=== PATIENT | female | born 1940 | race Caucasian/White ===

== ENCOUNTER 2017-03-18 10:28 | Day surgery (SDC) | payer OTHER ==
[2017-03-18] MEDS ORDERED: LR 1,000 ML IV ONE (11:34)
--- NOTE | 2017-03-18 12:13 | PDGENHP ---
History & Physical Chief Complaint: hx polyps History of Present Illness: 76 year old female with a history of polyps, family hx of CRC (siblings) presents for surveillance colonoscopy. Pertinent Past, Social, Family History: FaMhx: CRC. PMHx: Pacemaker, HTN, thyroid Relevant Physical Exam: HEENT: Anicteric. CV: RRR +s1s2. Lungs: CTAB. Abd: soft, nt, + bs. NO guarding or rebound Cardiorespiratory Assessment: ASA3. MAL 2
[2017-03-18] MEDS ORDERED: PROPOFOL/EMULSION 500 MG/50 ML BOTTLE IV ONE (12:33)
[2017-03-18] MEDS ORDERED: PROPOFOL 200 MG/20 ML VIAL ONE (13:06)
--- NOTE | 2017-03-18 13:28 | POSTOPPROG ---
Post Op Note Date of Operation: 03/18/17 Surgeon: Sky Mitchell Anesthesia: IV Sedation Pre-op Diagnosis: hx polyps Post-op Diagnosis: polyps Indication: hx polyps Procedure: colonoscopy snare, bx Findings: + polyps Inf/Abcess present in the surg proc area at time of surgery?: No
[2017-03-18] MEDS ORDERED: NS 500 ML IV SCH (13:30)
[2017-03-18 13:31] VITALS: PULSE 70
[2017-03-18] MEDS ORDERED: NALOXONE HCL 0.4 MG/ML INJ IVP PRN (13:33)
[2017-03-18] MEDS ORDERED: ENALAPRILAT DIHYDRATE 1.25 MG/ML VIAL IVP PRN (13:33)
[2017-03-18] MEDS ORDERED: fentaNYL 100 MCG/2 ML INJ IVP PRN (13:33)
--- NOTE | 2017-03-18 13:33 | PDANEPAE ---
ANE Past Medical History - Cardiovascular History Hx Hypertension: Yes Hx Arrhythmias: Yes Hx Chest Pain: No Hx Coronary Artery / Peripheral Vascular Disease: Yes Hx CHF / Valvular Disease: No Hx Palpitations: No Cardiovascular History Comment: HYPERLIPIDEMIA. HTN. CAD. PAF. SSS- PACEMAKER. VTACH - Pulmonary History Hx COPD: No Hx Asthma/Reactive Airway Disease: No Hx Recent Upper Respiratory Infection: No Hx Oxygen in Use at Home: No Hx Sleep Apnea: No Sleep Apnea Screening Result - Last Documented: Negative - Neurologic History Hx Cerebrovascular Accident: No Hx Seizures: No Hx Dementia: No - Endocrine History Hx Diabetes: No - Renal History Hx Renal Disorders: No - Liver History Hx Hepatic Disorders: No - Neurological & Psychiatric Hx Hx Neurological and Psychiatric Disorders: No - Cancer History Hx Cancer: Yes Cancer History Comment: THYROID. OVARIAN. (CURRENTLY CANCER FREE) - Congenital Disorder History Hx Congenital Disorders: No - GI History Hx Gastrointestinal Disorders: No - Chronic Pain History Chronic Pain: No - Surgical History Prior Surgeries: COLONOSCOPY 2013 "I GO ABOUT 2-3 YEARS". PACEMAKER 2013. LIPOMA REMOVED 2012. RADIOACTIVE GOLD IMPLANTED 1976. HYSTERECTOMY 1975. THYROIDECTOMY 1973. LAMINECTOMY 1965. APPENDECTOMY - 1952 ANE Review of Systems - Exercise capacity METS (RN): 4 METS - Pacemaker Pacemaker Type: Permanent Pacer/Defib Pacemaker Sanitation Worker Cleaning Equipment: Medtronic Pacemaker Model: FIONA STRAUSS Pacemaker Mode: MVP Pacemaker Set Rate: 70 Date Pacemaker Last Checked: 02/01/17 ANE Patient History - Allergies Allergies/Adverse Reactions: No Known Allergies Allergy (Verified 02/04/17 15:29) - Home Medications Home Medications: Diltiazem 02/04/17 [Last Taken 03/16/17] Eliquis 02/04/17 [Last Taken 03/15/17] Enalapril Maleate 02/04/17 [Last Taken 03/16/17] Herbals/Supplements -Info Only 02/04/17 [Last Taken 03/16/17] Lipitor 02/04/17 [Last Taken 03/16/17] Paroxetine HCl 02/04/17 [Last Taken 03/17/17 09:00] Synthroid 02/04/17 [Last Taken 03/17/17 09:00] Vitamin C 02/04/17 [Last Taken 03/16/17] - NPO status NPO Since - Liquids (Date): 03/18/17 NPO Since - Liquids (Time): 01:00 NPO Since - Solids (Date): 03/17/17 NPO Since - Solids (Time): 12:00 - Smoking Hx Smoking Status: Never smoked - Family Anes Hx Family Hx Anesthesia Complications: N/A ANE Labs/Vital Signs - Vital Signs Blood Pressure: 160/78 Heart Rate: 70 Respiratory Rate: 17 O2 Sat (%): 95 Height: 170.18 cm Weight: 86.183 kg ANE Physical Exam - Airway Neck exam: FROM Mallampati Score: Class 1 Mouth exam: normal dental/mouth exam - Pulmonary Pulmonary: no respiratory distress - Cardiovascular Cardiovascular: regular rate and rhythym - ASA Status ASA Status: II ANE Anesthesia Plan Anesthesia Plan: GA with mask
--- NOTE | 2017-03-18 13:33 | POSTANESTH ---
Post Anesthetic Evaluation Cardiovascular Status: Similar to Pre-Op Cond Respiratory Status: Normal, Stable Level of Consciousness/Mental Status: Can Participate in Eval Pain Control: Adequate, Prn Tx Ordered Nausea/Vomiting Control: Adequate, Prn Tx Ordered Complications Possibly Related to Anesthesia: None Noted
--- NOTE | 2017-03-18 14:00 | GPN ---
[f rep st] PROCEDURE NOTE DATE OF PROCEDURE: 03/18/2017 PROCEDURE: Colonoscopy with snare polypectomy, biopsy. INDICATION: The patient is a 76-year-old female with a personal history of polyps as well as an extensive family history of colon cancer, who presents for surveillance colonoscopy. CONSENT: Risks, benefits, and alternatives of the procedure were discussed in great detail with the patient. Risks of infection, bleeding, perforation, and sedation were discussed. All questions answered, and informed consent was obtained. MEDICATIONS: Propofol. Please see Anesthesiology for details. ESTIMATED BLOOD LOSS: Insignificant. COLONOSCOPIC EVALUATION: A rectal exam was done and no palpable mass was felt. The scope was inserted in the rectum and advanced to the cecum, where the ileocecal valve and appendiceal orifice were seen. The quality of prep was good. Scattered diverticula were noted in the sigmoid colon, descending colon, and transverse colon. In the cecum, a 4 mm sessile polyp was removed by cold snare polypectomy. Another 2 mm sessile polyp was seen and removed by biopsy forceps. In the ascending colon, a 5 mm sessile polyp was seen and removed by cold snare polypectomy. In the descending colon, a 4 mm sessile polyp was seen and removed by cold snare polypectomy. In the sigmoid colon, 2 sessile polyps were seen which measured approximately 4 -5 mm and were removed by cold snare polypectomy. IMPRESSION: 1. Colonic polyps x6. 2. Diverticulosis. RECOMMENDATIONS: 1. Follow up on biopsy results. 2. Fiber supplementation. 3. 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 She has multiple first-degree relatives with colon cancer as well as second-degree relatives. At this time, I recommend genetic testing. Would also recommend repeat colonoscopy in 1 year if she does not get genetic testing, due to the high probability of Allen syndrome. /[id number]/MODL MTDD
[2017-03-18 14:10] VITALS: RESP 15
[2017-03-18 14:30] VITALS: BP 150/84; TEMP 97.9; O2SAT 94
== END 2017-03-18 14:40 | disposition home or self-care (01) ==
LOC: FSGY 10:28
PROVIDERS: ATTEND Internal Medicine Gastroenterology
DX: D12.0 Benign neoplasm of cecum (principal); D12.2 Benign neoplasm of ascending colon; D12.4 Benign neoplasm of descending colon; D12.5 Benign neoplasm of sigmoid colon; I10 Essential (primary) hypertension; Z95.0 Presence of cardiac pacemaker; Z80.0 Family history of malignant neoplasm of digestive organs
CPT/HCPCS: J2704